=== PATIENT | male | born 1990 | race Caucasian/White ===

== ENCOUNTER 2016-10-15 10:25 | Emergency (ER) | payer OTHER ==
[2016-10-15 11:23] VITALS: BP 144/92; PULSE 62; RESP 18; TEMP 98.2; O2SAT 95
--- NOTE | 2016-10-15 11:46 | EDPHY ---
H & P Time Seen by Provider: 10/15/16 10:53 HPI/ROS: CHIEF COMPLAINT: spider bite HISTORY OF PRESENT ILLNESS: 26-year-old male presents emergency department with a spider bite to his left upper thigh that happened yesterday. Patient reports he woke up in the morning and put his pants on, he felt a pinch and then saw a brown spider crawl out of his pant leg. Tetanus is up-to-date. Patient denies numbness or tingling in this leg, he is unsure woken of spider this was. Patient denies scrotal swelling or tenderness. No fevers or chills. No abdominal pain or cramping. Smoking Status: Never smoked Physical Exam: GEN: Awake, alert, oriented, no acute distress RESP: nl resp effort MSK: Full range of motion of left hip and left knee SKIN: 1 cm area of erythema left anterior upper thigh with a 5 cm x 1 cm erythematous streak. No lymph node enlargement, no scrotal swelling, erythema or tenderness Constitutional: Initial Vital Signs Temperature (C) 36.7 C 10/15/16 10:28 Heart Rate 71 10/15/16 10:28 Respiratory Rate 16 10/15/16 10:28 Blood Pressure 147/98 H 10/15/16 10:28 O2 Sat (%) 98 10/15/16 10:28 O2 Delivery Mode Room Air Allergies/Adverse Reactions: No Known Allergies Allergy (Unverified 10/15/16 10:30) Home Medications: Medication Instructions Recorded Cephalexin [Keflex] 500 mg PO QID 5 Days 10/15/16 MDM/Departure - Depart Disposition: Home, Routine, Self-Care Clinical Impression: Spider bite Qualifiers: Encounter type: initial encounter Injury intent: accidental or unintentional Qualified Code(s): T63.301A - Toxic effect of unspecified spider venom, accidental (unintentional), initial encounter Condition: Good Instructions: Brown Recluse Spider Bite (ED), Insect Bite or Sting (ED) Additional Instructions: Elevate your leg, warm compresses 5 times a day for 10 minutes, take your antibiotics as prescribed. Return to the emergency department for any worsening symptoms, new symptoms or concerns. Prescriptions: Cephalexin [Keflex] 500 mg PO QID 5 Days Referrals: Chetan Ruiz MD [Primary Care Provider] - As per Instructions
== END 2016-10-15 12:20 | disposition home or self-care (01) ==
DX: T63.301A Toxic effect of unspecified spider venom, accidental (unintentional), initial encounter (principal)